=== PATIENT | male | born 1980 | race Caucasian/White ===

== ENCOUNTER 2016-10-10 14:16 | Emergency (ER) | payer OTHER ==
--- NOTE | 2016-10-10 16:05 | RAD ---
Indication: Transient ischemic attack with headaches. CT of the brain was performed without IV contrast. Ventricular structures are midline. No midline shift is noted. The extra-axial spaces are unremarkable. There is no evidence of intracranial mass or hemorrhage. No other high or low density lesions are identified. Mastoid air cells and paranasal sinuses are unremarkable. When compared to previous exam of November 07, 2012 MRI no significant change is noted. IMPRESSION: No intracranial lesion is identified.
[2016-10-10 16:12] VITALS: BP 121/70
[2016-10-10 16:24] LABS: Hematocrit 44 % (42-52); Hemoglobin 14.9 g/dl (14.0-18.0); Mean Corpuscular HGB Conc 34 g/dl (31-36); Mean Corpuscular Hemoglobin 30 pg (27-31); Mean Corpuscular Volume 89 fL (80-94); Mean Platelet Volume 6 um3 (7.4-10.4); Red Blood Count 4.96 10^6/ul (4.0-5.4); Red Cell Distribution Width 13 % (10.5-15)
--- NOTE | 2016-10-10 16:29 | RAD ---
Indication: Right hand numbness, stroke symptoms. Comparison is made with previous exam dated January 08, 2005. Single view of the chest demonstrates no mediastinal shift. Heart is of normal size and configuration. Lung rodriguez demonstrate no pleural fluid, pneumonia or pneumothorax. IMPRESSION: No active cardiopulmonary disease is noted.
--- NOTE | 2016-10-10 16:35 | ED ---
Neurological HPI - HPI Summary HPI Summary: Pt here w/ acute hemivisual change in Rt eye (blurred) followed by Rt hand numbness (motor remained intact and w/o pain) and SEN. His sx resolved after about 20 mins this morning after starting at 7:00. His SEN remains. Denies numbness, weakness, tingling at this time. Vision is back to baseline. Denies chest pain, SOB, ab pain, N/V/D, skin changes. H/o "TIA" dx'd through PCP's office in the past - no tx or f/u care. Pt does report h/o hyperlipidemia but has not followed up in 5 years - was told at the time it was not high enough to treat then. H/o "migraine" SEN in the past - years ago, had a generalized SEN w/ light sensitivity and nausea which he noticed while watching a movie at the theatre. Did not seek medical care for this as it resolved over time. No recent stress, meds, change in diet. Pt does report he has had LE cramping sx at night for a while now. - History of Current Complaint Chief Complaint: EDGeneral Stated Complaint: HEADACHE/RT HAND NUMB Time Seen by Provider: 10/10/16 15:49 Hx Obtained From: Patient, Family/Refund Specialist - - Allergy/Home Medications Allergies/Adverse Reactions: Allergies Allergy/AdvReac Type Severity Reaction Status Date / Time Clarithromycin [From Biaxin] Allergy Intermediate Rash Verified 03/30/13 16:04 Hydrocodone [From Vicodin] Allergy Intermediate Rash Verified 03/30/13 16:04 PMH/Surg Hx/FS Hx/Imm Hx Previously Healthy: Yes Endocrine/Hematology History: Denies: Hx Anticoagulant Therapy, Hx Blood Disorders, Hx Diabetes, Hx Thyroid Disease, Hx Unexplained Bleeding, Hx Coagulopothy Cardiovascular History: Denies: Hx Hypertension, Hx Pacemaker/ICD Respiratory History: Denies: Hx Asthma History: Denies: Hx Dialysis, Hx Renal Disease Sensory History: Denies: Hx Hearing Aid Neurological History: Reports: Other Neuro Impairments/Disorders - "TIA" Psychiatric History: Denies: Hx Panic Disorder - Surgical History Surgery Procedure, Year, and Place: PARTIAL RIB REMOVED 2004(?), EXTERNAL FIXATOR RT LEG 2007, Infectious Disease History: No Infectious Disease History: Denies: Traveled Outside the [place] in Last 30 Days - Social History Occupation: Employed Full-time Lives: With Family Alcohol Use: Weekly Hx Substance Use: No Substance Use Type: Reports: None Hx Tobacco Use: No Smoking Status (MU): Never Smoked Tobacco Review of Systems Negative: Fever, Chills, Fatigue Eyes: Other - see hpi Negative: Sore Throat, Ear Ache, Nasal Discharge Negative: Palpitations, Chest Pain Negative: Shortness Of Breath, Cough Gastrointestinal: Negative Positive: no symptoms reported Musculoskeletal: Negative Negative: Rash, Bruising Neurological: Other - see HPI Psychological: Normal All Other Systems Reviewed And Are Negative: Yes Physical Exam Triage Information Reviewed: Yes Vital Signs On Initial Exam: Initial Vitals Temp Pulse Resp BP Pulse Ox 98.1 F 85 20 143/90 100 10/10/16 14:18 10/10/16 14:18 10/10/16 14:18 10/10/16 14:18 10/10/16 14:18 Vital Signs Reviewed: Yes Appearance: Positive: Well-Appearing, No Pain Distress, Well-Nourished Skin: Positive: Warm, Dry Head/Face: Positive: Normal Head/Face Inspection - Sinuses NTTP Eyes: Positive: Normal, EOMI, MOODY, Conjunctiva Clear ENT: Positive: Normal ENT inspection, Hearing grossly normal, Pharynx normal, TMs normal. Negative: Nasal congestion, Nasal drainage, Tonsillar swelling, Tonsillar exudate Dental: Negative: Abscess @ Neck: Positive: Supple, Nontender, No Lymphadenopathy Respiratory/Lung Sounds: Positive: Clear to Auscultation, Breath Sounds Present. Negative: Rales, Rhonchi, Wheezes Cardiovascular: Positive: Normal - no carotid bruit appreciated upon auscultation, RRR, Pulses are Symmetrical in both Upper and Lower Extremities, S1, S2. Negative: Murmur, Rub, Leg Edema Left, Leg Edema Right Abdomen Description: Positive: Nontender, No Organomegaly, Soft Bowel Sounds: Positive: Present Musculoskeletal: Positive: Normal, Strength/ROM Intact Neurological: Positive: Normal, Sensory/Motor Intact, Alert, Oriented to Person Place, Time, CN Intact II-III, Reflexes Intact, Normal Gait, Finger to Nose, Facial Symmetry, Speech Normal. Negative: Disoriented, Pronator Drift Present Psychiatric: Positive: Normal - Moustapha Coma Scale Coma Scale Total: 15 Diagnostics - Vital Signs Vital Signs Temp Pulse Resp BP Pulse Ox 10/10/16 16:10 98 10/10/16 16:00 121/70 96 10/10/16 15:39 95 10/10/16 15:38 126/63 10/10/16 14:18 98.1 F 85 20 143/90 100 - Laboratory Lab Results: Lab Results 10/10/16 Range/Units 16:07 WBC 8.0 (3.5-10.8) 10^3/ul RBC 4.96 (4.0-5.4) 10^6/ul Hgb 14.9 (14.0-18.0) g/dl Hct 44 (42-52) % MCV 89 (80-94) fL MCH 30 (27-31) pg MCHC 34 (31-36) g/dl RDW 13 (10.5-15) % Plt Count 277 (150-450) 10^3/ul MPV 6 L (7.4-10.4) um3 Neut % (Auto) 62.7 (38-83) % Lymph % (Auto) 29.4 (25-47) % Kimble % (Auto) 4.7 (1-9) % Eos % (Auto) 2.0 (0-6) % Baso % (Auto) 1.2 (0-2) % Absolute Neuts (auto) 5.0 (1.5-7.7) 10^3/ul Absolute Lymphs (auto) 2.3 (1.0-4.8) 10^3/ul Absolute Monos (auto) 0.4 (0-0.8) 10^3/ul Absolute Eos (auto) 0.2 (0-0.6) 10^3/ul Absolute Basos (auto) 0.1 (0-0.2) 10^3/ul Absolute Nucleated RBC 0.02 10^3/ul Nucleated RBC % 0.2 Result Diagrams: 10/10/16 16:07 10/10/16 16:07 Lab Statement: Any lab studies that have been ordered have been reviewed, and results considered in the medical decision making process. Course/Dx - Course Course Of Treatment: Pt presents w/ Rt sided visual blurring, Rt hand numbness and SEN at 7:00 today. These sx have resolved except for SEN which is dull. Pt's CT brain today as well as ECG and labs are unremarkable. He has had a CVA w/u through his PCP's office (ie. MRI, MRA - normal). W/o acute deficits at this time and after speaking w/ Dr. Peterson, pt is okay for d/c. Will have him f/ u w/ neurology to further asses sx. Education about migraine prevention provided if this is what he's having although advised there are other neurological pathologies that could cause these sx and he needs specialist evaluation to better asses/dx. Encouraged him to try an NSAID at early onset of sx. Reviewed danger s/sx of when to return to ED. Pt and voice understanding and agree w/ plan. - Diagnoses Provider Diagnoses: Headache, Visual changes, Numbness of right hand - Physician Notifications Discussed Care of Patient With: Dr. Peterson- neurology Discharge - Discharge Plan Condition: Stable Disposition: HOME Patient Education Materials: Migraine Headache (ED), Acute Headache (ED) Referrals: Rubén Barker MD [Medical Doctor] - Joselo Mari MD [Primary Care Provider] - Additional Instructions: Your symptoms today do not indicate acute life threatening pathology. However, since these symptoms are recurring and without a diagnosis, it is advised that you follow up with a neurologist for further assessment. General headache information as well as migraine information has been provided as supportive care. It is encouraged that you keep a diary of symptoms as well to better track potential triggers, symptoms, etc - bring with you to your follow-up appointments. *If you develop return of similar headache, you may try ibuprofen 600mg with food. If not relief or change, return to ED. If you have neurological deficits, return to ED.
[2016-10-10 16:46] LABS: Albumin 4.2 g/dL (3.2-5.2); BUN/Creatinine Ratio 19.5 (8-20); Calcium 9.4 mg/dL (8.6-10.3); EGFR African American 129.2 (>60); EGFR Non-African American 100.4 (>60); Total Bilirubin 0.4 mg/dL (0.2-1.0); Total Protein 7.2 g/dL (6.4-8.9)
[2016-10-10 17:00] LABS: Potassium 4.2 mmol/L (3.5-5.0)
[2016-10-10 17:40] LABS: Magnesium 2.3 mg/dL (1.9-2.7)
[2016-10-10 19:41] LABS: TSH (Thyroid Stimulating Horm) 1.46 mcIU/mL (0.34-5.60)
== END 2016-10-10 19:31 | disposition home or self-care (01) ==
LOC: ED 14:16
DX: R51 Headache (principal); R20.0 Anesthesia of skin
CPT/HCPCS: 36415; 70450; 71010; 80053; 80061; 83605; 83735; 84443; 84484; 85025; 85610; 85730; 93005; 99282

== ENCOUNTER 2017-03-18 07:56 | Day surgery (SDC) | payer OTHER ==
--- NOTE | 2017-03-08 12:55 | HP ---
H&P (Free Text) History and Physical: HISTORY AND PHYSICAL DATE OF SURGERY/ADMISSION: 03/18/2017 ATTENDING SURGEON: Paul Rosen MD PROCEDURE: Left shoulder rotator cuff repair, subpectoral biceps tenodesis, arthroscopic. Is patient working? Yes No In your opinion, was the incident that the patient described the competent medical cause of this injury/illness? Yes No Are the patient's complaints consistent with his history of the injury/illness? Yes No Is the patient's history of the inj/illness consistent with your obj findings? Yes No N/A What is the percentage (0-100%) of temporary impairment? 25 % CC: Presents for follow up of. (Follow Up)Left shoulder pain. HPI: The patient is a very pleasant 36-year-old gentleman who suffered a Workers ' Comp injury to his left shoulder and has been following Dr. Rosen for several years. Due to the patient's pain not improving he has elected to undergo an arthroscopic evaluation of his left shoulder with possible rotator cuff repair and subpectoral biceps tenodesis. PAST MEDICAL HISTORY: 1. Left shoulder injury. 2. Elevated cholesterol. PAST SURGICAL HISTORY: 1. Tib/fib fracture 2007. 2. Rib removed 2004. CURRENT MEDICATIONS: 1. Aspirin 81 mg one tablet daily. 2. Voltaren gel topically to affected shoulder up to four times a day. 3. Vitamin B12. ALLERGIES: 1. Hydrocodone. 2. Biaxin. 3. Mobic. FAMILY HISTORY: Non-contributory, the patient states he does not know of any medical problems in his family. SOCIAL HISTORY: No alcohol use. Patient currently lives with his . No smoking. Currently working. Date: 02/27/2017 Was the patient queried about smoking behavior? Yes No Does the patient currently smoke? Smoking: Patient has never smoked. ROS: GENERAL: Negative for fever, chills, and night sweats. Positive difficulty with anesthesia. Patient states awakens violently shaking at time. HEENT: Negative for headaches, lightheadedness or syncopal episodes. INTEGUMENTARY: Negative for abrasions, lesions, or open wounds. CARDIOTHORACIC: Negative for chest pain, palpitations, or edema. Negative for high blood pressure. Positive for elevated cholesterol. PULMONARY: Negative for shortness of breath with exertion, chronic cough or COPD. GI: Negative for nausea, vomiting, constipation, diarrhea, or GERD. : Negative for nocturia, urinary frequency, urinary urgency, history of UTIs, or kidney problems. MUSCULOSKELETAL: Positive for left shoulder pain. Positive for intermittent joint pains. NEURO: Negative for paraesthesias and numbness. No history of seizures, stroke , or epilepsy. ENDOCRINE: Negative for diabetes or thyroid complaints. HEMATOLOGIC: Negative for easy bruising, anemia, excessive bleeding. No history of DVT or PE's. INFECTIOUS DISEASE: Negative for MRSA, hepatitis C, or HIV. Vitals: Ht: 67" Wt: 166lb Pulse: 64 BP: 122/74 Resp: 15 T: 97.2 Pain Level: 4 BMI: 26.0 PHYSICAL EXAM: GENERAL: Well appearing in no acute distress, alert and oriented. HEENT: Normocephalic, atraumatic. NECK: Full range of neck. CARDIOTHORACIC: Regular rate and rhythm. No murmurs, gallops or rubs. No edema bilateral lower extremities. PULMONARY: Lungs clear to auscultation bilaterally. No crackles, rhonchi, or wheezes. ABDOMEN: Soft, nontender, nondistended. No CVA tenderness bilaterally. NEURO: Alert and oriented x3. Cranial nerves grossly intact. Sensation intact to light touch bilateral upper and lower extremities. Posterior tibial pulses 2 +. Radial and ulnar nerve pulses 2+ bilaterally. LEFT LOWER EXTREMITY: Positive tenderness with abduction and flexion of the left shoulder greater than 90 degrees. Exceptional Needs Teacher strength equal bilateral of upper extremities. STUDIES: Open MRI dated 09/26/2016 showed a partial tear of the bursal surface of the supraspinatus tendon at the attachment to the greater tuberosity. ASSESSMENT/PLAN: The patient is a very pleasant 36-year-old gentleman with a Workers' Comp injury who has been following Dr. Rosen and due to no improvement has elected to undergo an arthroscopic evaluation with possible rotator cuff tear and possible biceps tenodesis on 03/18/2017. He is in good health and does not require a preoperative evaluation. He will likely return home postoperatively. Oxycodone and colace were sent to the patient's pharmacy for postoperative pain management. He will follow with Dr. Rosen in approximately 10 days postop for suture removal and first evaluation. The patient was in agreement with this plan and had no other questions.
[~2017-03-18 07:56] MED LIST: Buffered Lidocaine 0.9% SYRIN* 5 ML/SYR SYRINGE INTRADERM ONE; Famotidine IV* 10 MG/ML 2 ML (20 mg) IV ONE
[2017-03-18] MEDS ORDERED: Famotidine IV* 10 MG/ML 2 ML (20 mg) ONE (07:58)
[2017-03-18] MEDS ORDERED: Buffered Lidocaine 0.9% SYRIN* 5 ML/SYR SYRINGE ONE (07:58)
[2017-03-18] MEDS ORDERED: ceFAZolin 2 GM PREMIX(*) 2 GM/50 ML BAG IVPB ONE (07:58)
[2017-03-18] MEDS ORDERED: ROPIVACAINE 5 MG/ML 30 ML BTL (0.5%) ONE (08:03)
[2017-03-18] MEDS ORDERED: fentaNYL* 50 MCG/ML 2 ML VIAL (100 MCG VIAL) ONE (08:35)
[2017-03-18] MEDS ORDERED: Midazolam* 1 MG/ML 5 ML VIAL (5 MG) ONE (08:35)
[2017-03-18] MEDS ORDERED: Propofol* 10 MG/ML 20 ML BTL IV PUSH ONE (08:36)
[2017-03-18] MEDS ORDERED: DiMENhydriNATE IV* 50 MG/ML VIAL ONE (08:36)
[2017-03-18] MEDS ORDERED: Lidocaine 2% PF * 5 ML VIAL ONE (08:36)
[2017-03-18] MEDS ORDERED: Ondansetron INJ* 2 MG/ML VIAL ONE (08:36)
[2017-03-18] MEDS ORDERED: Ketorolac INJ* 30 MG/ML 1 ML VIAL ONE (08:36)
[2017-03-18] MEDS ORDERED: Dexamethasone IV* 4 MG/ML 1 ML (4 MG) ONE (08:36)
[2017-03-18] MEDS ORDERED: EPINEPHrine AMP 1 MG/ML ONE (10:03)
[2017-03-18] MEDS ORDERED: Bupivacaine 0.25% W/EPI* 50 ML VIAL ONE (10:04)
[2017-03-18 12:44] VITALS: BP 118/75
--- NOTE | 2017-03-19 12:10 | OP ---
DATE OF OPERATION: 03/18/17 [facility] DATE OF : 82 SURGEON: Paul Rosen MD SUPERVISOR WELDING [employer]QUIPMENT REPAIRER: Kaycee Diallo RPA ANESTHESIOLOGIST: Hyun Ro MD ANESTHESIA: Regional and general. PRE-OP DIAGNOSES: 1. Impingement syndrome, left shoulder. 2. Left biceps tendinitis. POST-OP DIAGNOSES: 1. Impingement syndrome, left shoulder. 2. Left biceps tendinitis. OPERATIVE PROCEDURE: 1. Left shoulder arthroscopy. 2. Subacromial bursectomy and decompression. 3. Debridement, left shoulder. INDICATIONS: Mr. Perez is a 36-year-old male, who has had continued troubles with his left shoulder. He has been treated conservatively and to a certain degree has done well, where he has been back to work doing all activities, but continues to feel pain with the shoulder especially with repetitive and overhead maneuvers. He had some very specific irritation of the rotator cuff and while a subacromial injection does give him good temporary relief, it does not give him lasting relief. Similarly, he had very specific pain over his biceps tendon and also seemed to have some specific irritation there as well. I discussed with him that a shoulder arthroscopy and possible biceps tenodesis should work well to decrease his pain and improve his function. Risks of surgery such as infection, scar formation, stiffness, and continued pain were some of the risks discussed. We also talked a bit about how if his biceps tendon appears to be in excellent condition, we would debride rather than tenodese. ESTIMATED BLOOD LOSS: Negligible. COMPLICATIONS: None. DESCRIPTION OF PROCEDURE: The patient had a block placed in the holding area and was brought back to the OR and LMA was placed. He was then sat up in a beach chair position. Care was taken to make sure that his right arm was nicely padded on an airplane board and that the cubital tunnel was nice and free. Left shoulder area was prepped and then draped. Portal sites were preinjected using 0.25% Marcaine with epinephrine and a standard posterior portal was made first using an 11-blade. Blunt trocar with the sheath was easily introduced into the shoulder and a camera was introduced into the sheath. Shoulder was allowed to insufflate and pulling back, glenohumeral joint was nicely visualized. Pictures were taken. Using an outside-in technique, anterior portal was established and probe was introduced. He had a Pamela complex of his anterior labrum and the biceps was delivered into the joint. It could be seen on the anterior aspect of his biceps where he had a bit of red irritated synovium and this also could have been more vascular as well. Biceps itself was essentially pristine and again pictures were taken. Coming over the top side of the humeral head, rotator cuff insertion was nicely visualized and rotator cuff was in good condition as well. Shaver was introduced to take down a little bit of the biceps hiatus as there was quite a bit of redundant synovium right in that area. This was cleaned, so that the biceps appeared to have a dry cleaner hand track for moving in and out of the hiatus. Shoulder joint was exited and subacromial space was entered. Thickened, red, inflamed bursa was present. Shaver was used to take down the bursa until the underside of the acromion was nicely exposed from the deltoid attachment to the AC joint. Bur was then used to perform a decompression. Shaver was then used to smooth the edges of the bursa, so that the underside was nice and smooth. Final pictures were then taken. All instrumentation was removed, and the portal sites were closed using 4-0 nylon sutures. Considering that his biceps tendon was not torn and not damaged, I decided not to do a tenodesis at this point. Sterile dressing and a Cryo/Cuff were applied in the OR. The patient had the LMA removed in the OR, and was stable on transfer to the recovery room. DISPOSITION/DISCHARGE SUMMARY: Mr. Perez is a 36-year-old male who just underwent a left shoulder arthroscopy and decompression. He tolerated the procedure well and there were no complications. He is currently rolling towards the recovery room. Once he wakes a bit more from his general anesthesia , can tolerate p.o., has his pain well controlled, and can void, he will be discharged home. Prescription for Percocet will be e-scribed in. He has instructions to keep his dressing clean, dry, and intact for the next 3 days but after that, may take his dressing down, cover his sutures with Band-Aid, may shower, wash and get it wet, but should not soak it. I would like to see him in the office in 7 to 10 days to remove his sutures and make sure he is doing well. If there are any problems or if anything odd should occur, there are instructions to give the office a call. [id number]/[facility] #: [id number] [place]
== END 2017-03-18 13:17 | disposition home or self-care (01) ==
LOC: OR 07:56
PROVIDERS: ATTEND Orthopaedic Surgery
DX: M75.42 Impingement syndrome of left shoulder (principal); M75.22 Bicipital tendinitis, left shoulder; Z79.82 Long term (current) use of aspirin; Z88.6 Allergy status to analgesic agent; Z88.5 Allergy status to narcotic agent; Z88.1 Allergy status to other antibiotic agents
CPT/HCPCS: J0171; J0690; J1100; J1240; J1885; J2250; J2405; J2704; J2795; J3010